=== PATIENT | female | born 1940 | race Caucasian/White ===

== ENCOUNTER 2018-11-21 08:29 | Emergency (ER) | payer BC, OTHER ==
[2018-11-21 09:10] VITALS: BMI 34.3
--- NOTE | 2018-11-21 10:21 | PDOC ---
Documentation entered by Aubrey Mcqueen SCRIBE, acting as scribe for Regan Pierre MD. Regan Pierre MD: This documentation has been prepared by the Richar barreto Elijah, SCRIBE, under my direction and personally reviewed by me in its entirety. I confirm that the documentation accurately reflects all work, treatment, procedures, and medical decision making performed by me. History of Present Illness - General Chief Complaint: Injury Stated Complaint: FALL Time Seen by Provider: 11/21/18 09:27 History Source: Patient Exam Limitations: Dementia - History of Present Illness Initial Comments: 11/21/18 10:12 Patient is a 78 year old female from [facility] with a significant past medical history of dementia and depression who presents to the ED s/p unwitnessed fall. Patient does not remember what she was doing when she fell and how she fell. History limited secondary to patients condition. At this time patient appears to be unaware of where she is at this time but presents with abrasions to the left side of the face. Denies CP, SOB, Neck Pain, Dysuria, Cough, Nausea Allergies: NKA PCP: Dr. Whaley Past History - Past Medical History Allergies/Adverse Reactions: Allergies Allergy/AdvReac Type Severity Reaction Status Date / Time No Known Allergies Allergy Verified 10/23/14 14:14 Home Medications: Ambulatory Orders Donepezil HCl [Aricept] 20 mg PO DAILY 10/23/14 Fluoxetine HCl [Prozac -] 40 mg PO DAILY 10/23/14 Acetaminophen 500 mg PO BID PRN 11/21/18 Ascorbate Calcium [Vitamin C] 500 mg PO DAILY 11/21/18 Cholecalciferol (Vitamin D3) [Vitamin D3] 50,000 unit PO MONTHLY 11/21/18 Cyanocobalamin [Vitamin B12 -] 1,000 mcg PO DAILY 11/21/18 Lurasidone HCl [Latuda] 30 mg PO DAILY 11/21/18 Memantine HCl 10 mg PO BID 11/21/18 Nitrofurantoin Monohyd/M-Cryst [Macrobid -] 100 mg PO BID #6 capsule 11/21/18 COPD: No Dementia: Yes Psychiatric Problems: Yes (depression) - Suicide/Smoking/Psychosocial Hx Smoking History: Unknown if ever smoked Have you smoked in the past 12 months: No If you are a former smoker, when did you quit?: 8yrs Hx Alcohol Use: No Drug/Substance Use Hx: No Substance Use Type: None Hx Substance Use Treatment: No Review of Systems - Review of Systems Able to Perform ROS?: No Comments:: 11/21/18 10:14 ROS limited by dementia *Physical Exam - Vital Signs Last Vital Signs Temp Pulse Resp BP Pulse Ox 97.7 F 68 18 126/58 L 96 11/21/18 08:35 11/21/18 08:35 11/21/18 08:35 11/21/18 08:35 11/21/18 08:35 - Physical Exam Comments: 11/21/18 10:15 GENERAL: The patient is awake, alert, and oriented x 1, (self) Nontoxic - in no acute distress. HEAD: Normocephalic, facial abrasions on L forehead/zygoma with mild ttp, wo stepoffs or crepitus. EYES: extraocular movements intact, sclera anicteric, conjunctiva clear. ENT: Normal voice, Moist mucous membranes. poor dentition, no signs of racoon eyes, hemoptympanum, battles sign NECK: Normal range of motion, supple without lymphadenopathy, JVD, or masses. LUNGS: Breath sounds equal, clear to auscultation bilaterally. No wheezes, no crackles, no rales. HEART: Regular rate and rhythm, normal S1 and S2 without murmur, rub or gallop. ABDOMEN: Soft, nontender, normoactive bowel sounds. No guarding, no rebound. No masses. NEUROLOGICAL: No facial asymmetry, Normal speech, moving all 4 extremities spontaneously and symmetrically, strength symmetric in uper/lower extremities PSYCH: Normal mood, normal affect. SKIN: Warm, Dry, normal turgor, no rashes or lesions noted except as noted on head exam Back: No midline tenderness to the cervical, thoracic or lumbar spine Musculoskelatal: FROM of b/l shoulders, elbows, wrist. FROM of hips, knees, ankles - No signs of ecchymosis, erythema, or crepitus noted on palpation extremities, chest wall, clavicals, ribs, back. Heart Score/ECG Review - ECG Impressions Comment:: 11/21/18 10:19 Twelve-lead EKG was performed and reviewed by me. There is normal sinus rhythm with a rate of 57 The axis is normal. 1st degree av block There is normal R wave progression There are no ST or T wave abnormalities. ED Treatment Course - LABORATORY CBC & Chemistry Diagram: 11/21/18 10:13 11/21/18 10:13 Medical Decision Making - Medical Decision Making 11/21/18 09:43 78y F from [facility], hx of dementia presents s/p unwitnessed fall. Pt is a poor historian due to dementia. No complaints currently beside pain to her left scalp. Exam patient is well-appearing, in acute distress no signs of other trauma besides abrasions to her left forehead. We will obtain EKG to screen for arrhythmias, CBC CMP to screen for anemia/ metabolic derangements. CT head and facial bones to rule out fracture or acute tramatic injury. ua to screen for occult uti abrasions cleaned and bacitracin applied 11/21/18 12:30 ct head and facial neg for fx will give pt rx for abx for presumed UTI pmd fu return precuations were discusssed I discussed the physical exam findings, ancillary test results and final diagnoses with the patient. I answered all of the patient's questions. The patient was satisfied with the care received and felt comfortable with the discharge plan and treatment plan. The patient will call their primary care physician within 24 hours to arrange follow-up and will return to the Emergency Department with any new, persistent or worsening symptoms. 11/21/18 12:31 *DC/Admit/Observation/Transfer Diagnosis at time of Disposition: Fall Qualifiers: Encounter type: initial encounter Qualified Code(s): W19.XXXA - Unspecified fall, initial encounter Facial abrasion Qualifiers: Encounter type: initial encounter Qualified Code(s): S00.81XA - Abrasion of other part of head, initial encounter UTI (urinary tract infection) Qualifiers: Urinary tract infection type: site unspecified Hematuria presence: without hematuria Qualified Code(s): N39.0 - Urinary tract infection, site not specified - Discharge Dispostion Disposition: [facility] Condition at time of disposition: Improved Decision to Admit order: No - Prescriptions Prescriptions: Nitrofurantoin Monohyd/M-Cryst [Macrobid -] 100 mg PO BID #6 capsule - Referrals Referrals: Lulu Whaley [Primary Care Provider] - - Patient Instructions Printed Discharge Instructions: DI for Closed Head Injury, DI for Abrasion Additional Instructions: Return to the emergency department immediately with ANY new, persistent or worsening symptoms. You MUST call and follow up with your doctor tomorrow for further evaluation of your symptoms. Results were discussed with you. Please make sure your doctor reviews the results of your emergency evaluation. Your Emergency Department visit is not complete without a follow up with your doctor. - Post Discharge Activity
[2018-11-21 10:25] LABS: BASO % 0.8 % (0-2.0); EOS % 2.5 % (0-4.5); HEMATOCRIT 35.2 % (32.4-45.2); HEMOGLOBIN 11.6 GM/dL (10.7-15.3); LYMPH % 18.1 % (8-40); MCH 28.6 pg (25.7-33.7); MCHC 32.9 g/dl (32.0-36.0); MEAN CELL VOLUME 86.8 fl (80-96); MEAN PLT VOLUME 8.5 fl (7.5-11.1); MONO % 9.7 % (3.8-10.2); NEUT % 68.9 % (42.8-82.8); PLATELET COUNT 231 K/MM3 (134-434); RBC 4.05 M/mm3 (3.60-5.2); RDW 14.5 % (11.6-15.6); WHITE BLOOD COUNT 7.3 K/mm3 (4.0-10.0)
[2018-11-21 10:50] LABS: EPI CELLS 2.8 /HPF (0-5/HPF); HYALINE CASTS 16 /lpf (0-8); PH,URINE 8.5 (5.0-8.0); URINE APPEARANCE TURBID; URINE BACTERIA 132.9 /hpf (NEGATIVE); URINE BILIRUBIN NEGATIVE (NEGATIVE); URINE COLOR YELLOW; URINE GLUCOSE (UA) NEGATIVE (NEGATIVE); URINE KETONE NEGATIVE (NEGATIVE); URINE LEUK ESTERASE 2+ (NEGATIVE); URINE NITRITE NEGATIVE (NEGATIVE); URINE PROTEIN NEGATIVE (NEGATIVE); URINE RBC 6 /hpf (0-4); URINE WBC 27 /hpf (0-5)
[2018-11-21 10:55] LABS: ALBUMIN 3.1 g/dl (3.4-5.0); ALK PHOS 70 U/L (45-117); ANION GAP 3 MMOL/L (8-16); BILIRUBIN,TOTAL 0.4 mg/dL (0.2-1); BLOOD UREA NITROGEN 8.9 mg/dL (7-18); CALCIUM 8.8 mg/dL (8.5-10.1); CHLORIDE 106 mmol/L (98-107); CO2 31 mmol/L (21-32); CREATININE 0.7 mg/dL (0.55-1.3); GLUCOSE,RANDOM 94 mg/dL (74-106); POTASSIUM 4.6 mmol/L (3.5-5.1); SGOT/AST 16 U/L (15-37); SGPT/ALT 16 U/L (13-61); SODIUM 140 mmol/L (136-145); TOT PROT 6.5 g/dl (6.4-8.2)
--- NOTE | 2018-11-21 12:04 | EKG ---
Test Reason : Blood Pressure : / mmHG Vent. Rate : 057 BPM Atrial Rate : 057 BPM P-R Int : 230 ms QRS Dur : 088 ms QT Int : 426 ms P-R-T Axes : 067 000 007 degrees QTc Int : 414 ms SINUS BRADYCARDIA WITH 1ST DEGREE A-V BLOCK OTHERWISE NORMAL ECG WHEN COMPARED WITH ECG OF 23-OCT-2014 14:13, NE INTERVAL HAS INCREASED Confirmed by Santiago Richter ([id number]) on 11/21/2018 12:04:00 PM Referred By: Confirmed By:Santiago Richter
[2018-11-21] MEDS ORDERED: BACITRACIN 15 GM TUBE TOPICAL OINTMENT TP ONE (12:33)
[2018-11-21] MEDS ORDERED: BACITRACIN 0.9 GM PACKET ONE (13:00)
[2018-11-21 13:07] VITALS: BP 128/96; PULSE 67; TEMP 97.9
== END 2018-11-21 13:07 ==
LOC: JER 08:29
DX: S00.81XA Abrasion of other part of head, initial encounter (principal); W18.39XA Other fall on same level, initial encounter; Y93.89 Activity, other specified; Y92.128 Other place in nursing home as the place of occurrence of the external cause; Y99.8 Other external cause status; N39.0 Urinary tract infection, site not specified
CPT/HCPCS: 36415; 70450-TC; 70486-TC; 80053; 81003; 82550; 84484; 85025; 87077; 87086; 93005; 93010; 99283-25